=== PATIENT | female | born 1975 | race Caucasian/White ===

== ENCOUNTER 2020-03-14 14:48 | Emergency (ER) | payer MEDICAID ==
[~2020-03-14] VITALS: Ht 162.6 cm; Wt 65.8 kg
[2020-03-14] MEDS ORDERED: ONDANSETRON 4 MG/2 ML VIAL IM ONE (15:00)
[2020-03-14] MEDS ORDERED: HYDROMORPHONE 1 MG/1 ML DISP.SYRIN IM ONE (15:00)
[2020-03-14] MEDS ORDERED: ONDANSETRON 4 MG/2 ML VIAL ONE (15:08)
[2020-03-14] MEDS ORDERED: HYDROMORPHONE 2 MG/1 ML DISP.SYRIN ONE (15:08)
--- NOTE | 2020-03-14 15:14 | NUR ---
PT IS IN ROOM #2B. DR GUZMAN EVALUATED THE PT. PT WAS D/C'd TO HOME. D/C INSTRUCTIONS GIVEN TO THE PT.
[2020-03-14 15:23] VITALS: BP 123/81
== END 2020-03-14 15:25 | disposition home or self-care (01) ==
LOC: ER 14:48
DX: R51.9 Headache, unspecified (principal); Z88.8 Allergy status to other drugs, medicaments and biological substances; G91.2 (Idiopathic) normal pressure hydrocephalus
CPT/HCPCS: 96372; 99283; J1170; J2405; A4663

== ENCOUNTER 2020-03-18 13:07 | Emergency (ER) | payer MEDICAID ==
[~2020-03-18] VITALS: Ht 162.6 cm; Wt 65.8 kg
--- NOTE | 2020-03-18 13:28 | NUR ---
PT IS IN RROM #1A. DR TORRES EVALUATED THE PT.
[2020-03-18] MEDS ORDERED: HYDROMORPHONE 1 MG/1 ML DISP.SYRIN ONE (13:29)
[2020-03-18] MEDS ORDERED: ONDANSETRON ODT 4 MG TAB.RAPDIS ONE (13:29)
[2020-03-18] MEDS ORDERED: HYDROMORPHONE 1 MG/1 ML DISP.SYRIN IM ONE (13:30)
[2020-03-18] MEDS ORDERED: ONDANSETRON ODT 4 MG TAB.RAPDIS SL ONE (13:30)
--- NOTE | 2020-03-18 14:08 | NUR ---
PT WAS D/C'd TO HOME. D/C INSTRUCTIONS GIVEN TO THE PT BY DR TORRES.
[2020-03-18 14:09] VITALS: BP 136/68
== END 2020-03-18 14:10 | disposition home or self-care (01) ==
LOC: ER 13:07
DX: R51.9 Headache, unspecified (principal); Z98.2 Presence of cerebrospinal fluid drainage device; G91.2 (Idiopathic) normal pressure hydrocephalus
CPT/HCPCS: 70450; 96372; 99284; J1170; A4663; Q0162

== ENCOUNTER 2020-04-28 09:03 | Emergency (ER) | payer MEDICAID ==
[~2020-04-28] VITALS: Ht 162.6 cm; Wt 65.8 kg
[2020-04-28] MEDS ORDERED: IV NORMAL SALINE 1000 ML BAG IV ONE (09:30)
[2020-04-28] MEDS ORDERED: MORPHINE SULFATE 2 MG/1 ML DISP.SYRIN ONE (09:40)
[2020-04-28] MEDS ORDERED: MORPHINE SULFATE 2 MG/1 ML DISP.SYRIN IM ONE (09:45)
[2020-04-28] MEDS ORDERED: ONDANSETRON ODT 4 MG TAB.RAPDIS SL ONE (09:45)
[2020-04-28] MEDS ORDERED: ONDANSETRON ODT 4 MG TAB.RAPDIS ONE (09:47)
--- NOTE | 2020-04-28 09:55 | NUR ---
ATTEMTED HEPLOCK, ABLETO DRAW BLOOD, UNABLE TO MAINTAIN THE HEPLOCK. PT REFUSES SECOND TRY AT THIS POINT.
[2020-04-28 10:03] LABS: *BILIRUBIN,URIN NEGATIVE (NEGATIVE); *BLOOD, URINE NEGATIVE (NEGATIVE); *CLARITY,URINE SLIGHTLY CLOUDY (CLEAR); *COLOR,URINE YELLOW (YELLOW); *KETONES,URINE NEGATIVE (NEGATIVE); *UROBILINOGEN,URINE 0.2 E.U./dl (NORMAL); LEUKOCYTE ESTERASE ,URINE NEGATIVE (NEGATIVE); NITRITE, URINE NEGATIVE (NEGATIVE); UGLUCOSE NEGATIVE (NEGATIVE)
[2020-04-28 10:03] LABS: BASOPHILS % (AUTO) 0.5 % (0.0-2.0); EOSINOPHILS % (AUTO) 0.3 % (0.0-7.0); HEMATOCRIT 35.6 % (31.2-41.9); HEMOGLOBIN 11.9 g/dL (10.9-14.3); LYMPHOCYTES # (AUTO) 1.4 K/uL (20.0-40.0); LYMPHOCYTES % (AUTO) 20.1 % (20.5-51.5); MEAN CORPUSCULAR HEMOGLOBIN 30.1 uug (24.7-32.8); MEAN CORPUSCULAR HGB CONC 33 g/dL (32.3-35.6); MEAN CORPUSCULAR VOLUME 90.2 fL (75.5-95.3); MONOCYTES # (AUTO) 0.4 K/uL (2.0-10.0); MONOCYTES % (AUTO) 6.2 % (0.0-11.0); NEUTROPHILS % (AUTO) 72.9 % (38.5-71.5); PLATELET COUNT (AUTO) 475 K/uL (179-408); RED BLOOD CELL COUNT(AUTO) 3.95 MIL/uL (3.63-4.92); WHITE BLOOD COUNT (AUTO) 6.9 K/uL (3.8-11.8)
[2020-04-28 10:05] LABS: *URINE HCG, QUAL NEG (NEGATIVE)
[2020-04-28 10:13] LABS: CARBON DIOXIDE 22 mmol/L (21-32); CHLORIDE 102 mmol/L (98-107); CREATININE 0.6 mg/dL (0.6-1.3); GLUCOSE 93 mg/dL (74-106); POTASSIUM 4.5 mmol/L (3.5-5.1); UREA NITROGEN, BLOOD 10 mg/dL (7-18)
[2020-04-28] MEDS ORDERED: HYDROMORPHONE 1 MG/1 ML DISP.SYRIN IM ONE (10:45)
[2020-04-28] MEDS ORDERED: HYDROMORPHONE 1 MG/1 ML DISP.SYRIN ONE (10:50)
--- NOTE | 2020-04-28 11:09 | NUR ---
Patient discharged to home in stable condition. Written and verbal after care instructions given. Patient verbalizes understanding of instructions. Stressed follow up or return to ER for worsening s/s.pt walks steady gait. pt is not driving.
[2020-04-28 11:11] VITALS: BP 141/89
[2020-04-28 17:49] LABS: RBC,URINE 0-3 /HPF (0-3); WBC,URINE 0-3 /HPF (0-3)
[2020-04-28 17:50] LABS: BACTERIA,URINE NONE SEEN /HPF (NONE SEEN); SQUAMOUS EPITHELIAL CELL,UR FEW /HPF (NONE SEEN)
== END 2020-04-28 11:13 | disposition home or self-care (01) ==
LOC: ER 09:03
DX: R51.9 Headache, unspecified (principal); Z98.2 Presence of cerebrospinal fluid drainage device; G91.2 (Idiopathic) normal pressure hydrocephalus; G40.909 Epilepsy, unspecified, not intractable, without status epilepticus; Z88.8 Allergy status to other drugs, medicaments and biological substances
CPT/HCPCS: 36415; 70450; 80048; 81001; 84702; 84703; 85025; 96372 ×2; 99284; J1170; J2270; A4663; J7030; Q0162

== ENCOUNTER 2020-10-30 13:41 | Emergency (ER) | payer MEDICAID ==
[~2020-10-30] VITALS: Ht 160 cm; Wt 62.1 kg
--- NOTE | 2020-10-30 13:54 | NUR ---
Dr Kang at the bedside for MSE.
[2020-10-30] MEDS ORDERED: OXYCODONE/APAP 5-325 MG TABLET PO ONE ×3 (14:00→16:15)
[2020-10-30] MEDS ORDERED: ONDANSETRON ODT 4 MG TAB.RAPDIS SL ONE (14:00)
[2020-10-30] MEDS ORDERED: ONDANSETRON ODT 4 MG TAB.RAPDIS ONE (14:10)
[2020-10-30] MEDS ORDERED: OXYCODONE/APAP 5-325 MG TABLET ONE ×3 (14:10→16:25)
[2020-10-30 14:27] LABS: BASOPHILS % (AUTO) 0.4 % (0.0-2.0); EOSINOPHILS # (AUTO) 0.1 K/uL (0.0-0.7); EOSINOPHILS % (AUTO) 0.6 % (0.0-7.0); HEMATOCRIT 33.9 % (31.2-41.9); HEMOGLOBIN 11.4 g/dL (10.9-14.3); LYMPHOCYTES # (AUTO) 2.5 K/uL (20.0-40.0); MEAN CORPUSCULAR HEMOGLOBIN 31.6 uug (24.7-32.8); MEAN CORPUSCULAR HGB CONC 34 g/dL (32.3-35.6); MEAN CORPUSCULAR VOLUME 93.6 fL (75.5-95.3); MONOCYTES # (AUTO) 0.7 K/uL (2.0-10.0); MONOCYTES % (AUTO) 8.1 % (0.0-11.0); NEUTROPHILS % (AUTO) 60.9 % (38.5-71.5); PLATELET COUNT (AUTO) 440 K/uL (179-408); RED BLOOD CELL COUNT(AUTO) 3.63 MIL/uL (3.63-4.92); WHITE BLOOD COUNT (AUTO) 8.2 K/uL (3.8-11.8)
[2020-10-30 14:30] LABS: CREATININE 0.6 mg/dL (0.6-1.3)
--- NOTE | 2020-10-30 15:06 | NUR ---
Pt states not nauseous anymore and wish to eat crackers, crackers and juice given.
--- NOTE | 2020-10-30 16:23 | NUR ---
DAYRON CHAVIS spoke to 's neurologist Dr Euceda.
[2020-10-30] MEDS ORDERED: OXYC-133 PO (17:37)
--- NOTE | 2020-10-30 17:45 | NUR ---
Patient discharged to home in stable condition. Written and verbal after care instructions given. Patient verbalizes understanding of instructions. Stressed follow up or return to ER for worsening s/s.
[2020-10-30 17:50] VITALS: BP 129/83
== END 2020-10-30 17:51 | disposition home or self-care (01) ==
LOC: ER 13:41
DX: R53.1 Weakness (principal); S06.5X9A Traumatic subdural hemorrhage with loss of consciousness of unspecified duration, initial encounter; X58.XXXA Exposure to other specified factors, initial encounter; Y92.89 Other specified places as the place of occurrence of the external cause; S92.351A Displaced fracture of fifth metatarsal bone, right foot, initial encounter for closed fracture; W19.XXXA Unspecified fall, initial encounter; M54.2 Cervicalgia; R51.9 Headache, unspecified; G40.909 Epilepsy, unspecified, not intractable, without status epilepticus; G91.2 (Idiopathic) normal pressure hydrocephalus; Z98.2 Presence of cerebrospinal fluid drainage device; Z88.8 Allergy status to other drugs, medicaments and biological substances
CPT/HCPCS: 36415; 70450; 72125; 73630; 85025; A4663; Q0162

== ENCOUNTER 2021-06-26 15:15 | Emergency (ER) | payer MEDICAID ==
[~2021-06-26] VITALS: Ht 165.1 cm; Wt 63.5 kg
[~2021-06-26 15:15] MED LIST: CALC1TAB30 PO; CLON0.5T23 PO; DIVA500T4 PO; DOLU50TA PO; EMTR1TAB13 PO; HYDR-3980 PO; ONDA4TAB11 PO; VENL75TA4 PO
[2021-06-26] MEDS ORDERED: ONDANSETRON HCL 4 MG TABLET PO ONE (15:45)
[2021-06-26] MEDS ORDERED: KETOROLAC TROMETHAMINE 15 MG INJ IM ONE (15:45)
[2021-06-26] MEDS ORDERED: KETOROLAC TROMETHAMINE 15 MG INJ ONE (15:59)
[2021-06-26] MEDS ORDERED: ONDANSETRON ODT 4 MG TAB.RAPDIS ONE (15:59)
[2021-06-26] MEDS ORDERED: ONDANSETRON ODT 4 MG TAB.RAPDIS SL ONE (16:00)
[2021-06-26 16:33] LABS: HEMATOCRIT 25.9 % (31.2-41.9); MEAN CORPUSCULAR VOLUME 96.6 fL (75.5-95.3); PLATELET COUNT (AUTO) 515 K/uL (179-408)
[2021-06-26 16:39] LABS: CREATININE 0.6 mg/dL (0.6-1.3)
[2021-06-26 17:10] VITALS: BP 121/69
== END 2021-06-26 17:11 | disposition home or self-care (01) ==
LOC: ER 15:15
DX: R51.9 Headache, unspecified (principal); R60.0 Localized edema; G89.29 Other chronic pain; M54.50 Low back pain, unspecified; D53.9 Nutritional anemia, unspecified; D75.839 Thrombocytosis, unspecified; Z79.899 Other long term (current) drug therapy; G40.909 Epilepsy, unspecified, not intractable, without status epilepticus; Z98.2 Presence of cerebrospinal fluid drainage device; Z88.8 Allergy status to other drugs, medicaments and biological substances
CPT/HCPCS: 36415; 71045; 80048; 83880; 84484; 85025; 93005; 96372; 99285; J1885; 70030-TC; A4663; Q0162